=== PATIENT | female | born 1970 | race Caucasian/White ===

== ENCOUNTER → 2018-02-14 | Outpatient (CLI) | payer OTHER ==
[~2018-02-14] VITALS: Ht 165.1 cm; Wt 77.2 kg
[~2018-02-14] MED LIST: AMERGE2.5 MG PO; AMITIZA24 MICROGR PO; ASCORBIC ACID500 M3 PO; COZAAR50 MG PO; Claritin-D 24 Hour PO; Colace PO; DEPAKOTE500 MG PO; DITROPAN XL10 MG PO; Depakote PO; FISH OIL PO; Feosol PO; Flonase BOTH NARES; Medrol PO; Motrin PO; NEXIUM20 MG PO; PHRENILIN FORT1 EAC1 PO; VITAMIN E400 UNIT PO; Vitamin D PO; ZONISAMIDE50 MG PO; Zonegran PO; oxyCODONE PO
== END | disposition home or self-care (01) ==
LOC: AMB 10:26
PROC: 0DB98ZX Excision of Duodenum, Via Natural or Artificial Opening Endoscopic, Diagnostic (ICD-10-PCS; principal; 2018-02-14)
PROC: 0DB68ZX Excision of Stomach, Via Natural or Artificial Opening Endoscopic, Diagnostic (ICD-10-PCS; principal; 2018-02-14)
DX: K29.70 Gastritis, unspecified, without bleeding (principal); I10 Essential (primary) hypertension; K21.9 Gastro-esophageal reflux disease without esophagitis; Z88.2 Allergy status to sulfonamides
CPT/HCPCS: 88305; 88342 TC

== ENCOUNTER 2018-02-22 15:28 | Emergency (ER) | payer OTHER ==
[~2018-02-22] VITALS: Ht 167.6 cm; Wt 76.6 kg
[2018-02-22 15:50] LABS: HEMATOCRIT 43.9 % (36.0-46.0); HEMOGLOBIN 14.6 G/DL (11.9-15.5); MCHC 33.3 G/DL (30.0-36.0); MCV 93.2 FL (83-99); PLATELET COUNT 331 K/uL (156-360); RBC DIS.WIDTH-CV 13.6 % (11.8-14.6); RBC DIS.WIDTH-SD 46.4 % (39-53); RED BLOOD COUNT 4.71 M/uL (3.80-5.20); WHITE BLOOD COUNT 9.9 K/uL (4.1-10.2)
[2018-02-22 15:59] LABS: ALBUMIN 4.1 g/dL (3.2-4.8)
[2018-02-22 16:00] LABS: CHLORIDE 102 mEq/L (99-109); POTASSIUM 3.9 mEq/L (3.7-5.4); SODIUM 137 mEq/L (136-147)
[2018-02-22 16:02] LABS: GLUCOSE 120 mg/dL (70-99); TOTAL PROTEIN 7.7 g/dL (6.4-8.3)
[2018-02-22 16:04] LABS: TOTAL BILIRUBIN 0.3 mg/dL (0.0-1.0)
[2018-02-22 16:05] LABS: ALKALINE PHOSPHATASE 62 IU/L (3-129)
[2018-02-22 16:06] LABS: GFR ESTIMATE (CALCULATED) > 59 mL/min/
[2018-02-22 16:07] LABS: AST (GOT) 21 IU/L (2-34); UREA NITROGEN (BUN) 14 mg/dL (9-23)
[2018-02-22 16:08] LABS: ALT (GPT) 10 IU/L (3-49)
[2018-02-22 16:10] LABS: APPEARANCE CLEAR ((CLEAR)); BILIRUBIN NEGATIVE; BLOOD NEGATIVE; COLOR YELLOW ((YELLOW)); GLUCOSE (STRIP) NEGATIVE; KETONES 5; LEUKOCYTES NEGATIVE; NITRITE NEGATIVE; PROTEIN (STRIP) NEGATIVE; SPECIFIC GRAVITY 1.014 (1.000-1.030); UCUL ADDED? NO
[2018-02-22 16:14] LABS: QUANTITATIVE HCG < 4.0 MIU/ML
[2018-02-22] MEDS ORDERED: COLACE100 MG PO (19:13)
[2018-02-22] MEDS ORDERED: ULTRACET1 TABLET PO (19:13)
[2018-02-22 19:28] VITALS: BP 172/96
== END 2018-02-22 19:29 | disposition home or self-care (01) ==
LOC: EME 15:28
DX: R10.31 Right lower quadrant pain (principal); N83.201 Unspecified ovarian cyst, right side; Z98.890 Other specified postprocedural states; Z90.710 Acquired absence of both cervix and uterus; F32.9 Major depressive disorder, single episode, unspecified; K21.9 Gastro-esophageal reflux disease without esophagitis; Z86.69 Personal history of other diseases of the nervous system and sense organs; Z90.49 Acquired absence of other specified parts of digestive tract
CPT/HCPCS: 74177; 80053; 81003; 84702; 85027; 99281; 99284; J1885; J2405; J3010; J7030

== ENCOUNTER 2018-04-17 19:28 | Inpatient (IN) | payer OTHER ==
[~2018-04-17] VITALS: Ht 167.6 cm; Wt 77.1 kg
[~2018-04-17 19:28] MED LIST changes: +COLACE100 MG PO; +ULTRACET1 TABLET PO
[2018-04-18 09:52] VITALS: BP 134/85
[2018-04-18 16:00] VITALS: BP 110/67
[2018-04-18 20:02] VITALS: BP 126/76
[2018-04-18 20:43] LABS: HEMATOCRIT 37.9 % (36.0-46.0); HEMOGLOBIN 12.1 G/DL (11.9-15.5); MCH 30.3 PG (29.0-34.0); MCHC 31.9 G/DL (30.0-36.0); PLATELET COUNT 303 K/uL (156-360); RBC DIS.WIDTH-CV 13.8 % (11.8-14.6); RBC DIS.WIDTH-SD 47.9 % (39-53); RED BLOOD COUNT 3.99 M/uL (3.80-5.20); WHITE BLOOD COUNT 16.6 K/uL (4.1-10.2)
[2018-04-18 21:06] LABS: CHLORIDE 102 MEQ/L (99-109); GFR ESTIMATE (CALCULATED) > 59 mL/min/; POTASSIUM 4.1 MEQ/L (3.7-5.4); SODIUM 135 MEQ/L (136-147); UREA NITROGEN (BUN) 13 mg/dL (9-23)
[2018-04-18 21:24] LABS: GLUCOSE 239 mg/dL (70-99)
[2018-04-19 00:38] VITALS: BP 135/68
[2018-04-19 03:41] VITALS: BP 138/86
[2018-04-19 07:17] LABS: HEMATOCRIT 40.4 % (36.0-46.0); MCH 30.4 PG (29.0-34.0); MCHC 32.2 G/DL (30.0-36.0); MCV 94.6 FL (83-99); PLATELET COUNT 328 K/uL (156-360); RBC DIS.WIDTH-CV 14.2 % (11.8-14.6); RBC DIS.WIDTH-SD 49.2 % (39-53); RED BLOOD COUNT 4.27 M/uL (3.80-5.20); WHITE BLOOD COUNT 15.2 K/uL (4.1-10.2)
[2018-04-19 07:39] VITALS: BP 182/99
[2018-04-19 07:42] LABS: CHLORIDE 101 MEQ/L (99-109); CREATININE 1.2 MG/DL (0.6-1.3); GFR ESTIMATE (CALCULATED) 51 mL/min/; GLUCOSE 146 mg/dL (70-99); POTASSIUM 3.9 MEQ/L (3.7-5.4); SODIUM 135 MEQ/L (136-147); UREA NITROGEN (BUN) 13 mg/dL (9-23)
[2018-04-19 11:56] VITALS: BP 182/100
[2018-04-19 15:13] VITALS: BP 179/86
[2018-04-20] VITALS (10 sets, daily range): BP systolic 114–139; BP diastolic 72–81
[2018-04-20 07:15] LABS: HEMATOCRIT 29.9 % (36.0-46.0); MCH 30.4 PG (29.0-34.0); MCHC 31.8 G/DL (30.0-36.0); MCV 95.5 FL (83-99); PLATELET COUNT 291 K/uL (156-360); RBC DIS.WIDTH-CV 14.7 % (11.8-14.6); WHITE BLOOD COUNT 20.3 K/uL (4.1-10.2)
[2018-04-20 07:16] LABS: HEMOGLOBIN 9.5 G/DL (11.9-15.5); RED BLOOD COUNT 3.13 M/uL (3.80-5.20)
[2018-04-20 07:39] LABS: CHLORIDE 103 MEQ/L (99-109); GFR ESTIMATE (CALCULATED) 27 mL/min/; GLUCOSE 122 mg/dL (70-99); POTASSIUM 3.9 MEQ/L (3.7-5.4); SODIUM 137 MEQ/L (136-147)
[2018-04-20 07:45] LABS: CREATININE 2.1 MG/DL (0.6-1.3); UREA NITROGEN (BUN) 22 mg/dL (9-23)
[2018-04-20 11:23] LABS: APPEARANCE SL.HAZY ((CLEAR)); BILIRUBIN NEGATIVE; BLOOD LARGE; COLOR YELLOW ((YELLOW)); GLUCOSE (STRIP) NEGATIVE; KETONES NEGATIVE; LEUKOCYTES SMALL; NITRITE NEGATIVE; PROTEIN (STRIP) 30; SPECIFIC GRAVITY 1.018 (1.000-1.030); UROBILINOGEN 0.2 MG/DL (0.2-1.0)
[2018-04-20 11:49] LABS: RED BLOOD CELLS TNTC /HPF (0-5)
[2018-04-20 11:50] LABS: BACTERIA RARE /HPF; EPITHELIAL CELLS RARE /HPF; MUCUS NONE SEEN /LPF
[2018-04-20 12:00] LABS: EOSINOPHILS,URINE SMALL AMOUNT
[2018-04-20 12:25] LABS: UR CREATININE CONCENTRATION 163.9 MG/DL
[2018-04-20 16:09] LABS: CKMB RELATIVE INDEX 0.5 (0.0-3.9); CREATINE KINASE 373 IU/L (1-294); TOTAL CK 373 IU/L (1-294)
[2018-04-20 16:10] LABS: HEMATOCRIT 26.4 % (36.0-46.0); HEMOGLOBIN 8.5 G/DL (11.9-15.5); MCHC 32.2 G/DL (30.0-36.0); MCV 96.4 FL (83-99); PLATELET COUNT 259 K/uL (156-360); RBC DIS.WIDTH-CV 14.8 % (11.8-14.6); RBC DIS.WIDTH-SD 51.6 % (39-53); RED BLOOD COUNT 2.74 M/uL (3.80-5.20); WHITE BLOOD COUNT 18.6 K/uL (4.1-10.2)
[2018-04-20 16:33] LABS: CHLORIDE 104 MEQ/L (99-109); GFR ESTIMATE (CALCULATED) 29 mL/min/; GLUCOSE 116 mg/dL (70-99); POTASSIUM 3.6 MEQ/L (3.7-5.4); SODIUM 137 MEQ/L (136-147); UREA NITROGEN (BUN) 23 mg/dL (9-23)
[2018-04-21] VITALS (8 sets, daily range): BP systolic 127–168; BP diastolic 73–96
[2018-04-21 07:13] LABS: BASOPHIL (%) 0.4 % (0-1); BASOPHIL COUNT 0.1 K/uL (0-0.1); EOSINOPHIL (%) 0.6 % (0-5); EOSINOPHIL COUNT 0.1 K/uL (0-0.3); HEMATOCRIT 29.4 % (36.0-46.0); HEMOGLOBIN 9.8 G/DL (11.9-15.5); IMMATURE GRANULOCYTE (%) 0.8 % (0.0-0.7); LYMPHOCYTE (%) 13.4 % (15-42); LYMPHOCYTE COUNT 1.8 K/uL (1.0-2.8); MCHC 33.3 G/DL (30.0-36.0); MONOCYTE (%) 15.3 % (3-12); NEUTROPHIL (%) 69.5 % (45-76); NEUTROPHIL COUNT 9.2 K/uL (1.8-6.4); PLATELET COUNT 203 K/uL (156-360); RBC DIS.WIDTH-CV 16.3 % (11.8-14.6); RED BLOOD COUNT 3.27 M/uL (3.80-5.20); WHITE BLOOD COUNT 13.2 K/uL (4.1-10.2)
[2018-04-21 07:26] LABS: MCV 89.9 FL (83-99)
[2018-04-21 08:23] LABS: ALBUMIN 2.8 G/DL (3.2-4.8); ALKALINE PHOSPHATASE 47 IU/L (3-129); ALT (GPT) 5 IU/L (3-49); AST (GOT) 15 IU/L (2-34); CHLORIDE 107 MEQ/L (99-109); CHLORIDE 108 MEQ/L (99-109); CREATININE 1.5 MG/DL (0.6-1.3); GFR ESTIMATE (CALCULATED) 40 mL/min/; GLUCOSE 77 mg/dL (70-99); GLUCOSE 78 mg/dL (70-99); MAGNESIUM 1.6 mg/dl (1.3-2.7); PHOSPHORUS 3.2 mg/dL (2.5-4.9); SODIUM 141 MEQ/L (136-147); TOTAL BILIRUBIN 0.3 MG/DL (0.0-1.0); TOTAL PROTEIN 4.9 G/DL (6.4-8.3); UREA NITROGEN (BUN) 18 mg/dL (9-23); UREA NITROGEN (BUN) 19 mg/dL (9-23)
[2018-04-22 06:34] LABS: HEMATOCRIT 28.6 % (36.0-46.0); HEMOGLOBIN 9.4 G/DL (11.9-15.5); MCH 29.8 PG (29.0-34.0); MCHC 32.9 G/DL (30.0-36.0); MCV 90.8 FL (83-99); PLATELET COUNT 209 K/uL (156-360); RBC DIS.WIDTH-CV 16.7 % (11.8-14.6); RBC DIS.WIDTH-SD 55.6 % (39-53); RED BLOOD COUNT 3.15 M/uL (3.80-5.20); WHITE BLOOD COUNT 12.1 K/uL (4.1-10.2)
[2018-04-22 07:19] LABS: CHLORIDE 107 MEQ/L (99-109); GFR ESTIMATE (CALCULATED) > 59 mL/min/; GLUCOSE 84 mg/dL (70-99); POTASSIUM 3.7 MEQ/L (3.7-5.4); SODIUM 140 MEQ/L (136-147); UREA NITROGEN (BUN) 14 mg/dL (9-23)
[2018-04-22 07:20] VITALS: BP 147/71
[2018-04-22] MEDS ORDERED: FLAGYL500 MG PO (10:54)
[2018-04-22] MEDS ORDERED: LEVAQUIN750 MG PO (10:54)
== END 2018-04-22 13:00 | disposition home or self-care (01) | DRG 742 ==
LOC: ENRESERV 19:28 → 2SOUTH 04-18 09:11 → 2EAST 04-18 09:11 → 2SOUTH 04-18 09:41 → ENRESERV 04-18 14:26 → 2SOUTH 04-18 14:53 → 2EAST 04-18 16:03
PROVIDERS: Internal Medicine Nephrology; Obstetrics & Gynecology Gynecologic Oncology
DX: N83.11 Corpus luteum cyst of right ovary (principal); N17.0 Acute kidney failure with tubular necrosis; T39.395A Adverse effect of other nonsteroidal anti-inflammatory drugs [NSAID], initial encounter; N13.5 Crossing vessel and stricture of ureter without hydronephrosis; N73.6 Female pelvic peritoneal adhesions (postinfective); I10 Essential (primary) hypertension; G40.909 Epilepsy, unspecified, not intractable, without status epilepticus; R32 Unspecified urinary incontinence; K21.9 Gastro-esophageal reflux disease without esophagitis; Z90.710 Acquired absence of both cervix and uterus
CPT/HCPCS: 36415; 74019; 76770; 80048; 80048 91; 80053; 80164; 81003; 82550; 82553; 82570; 83735; 84100; 84156; 85025; 85027; 86850; 86900; 86901; 86920; 88305; 89190; 93005; C1758; J0131; J0690; J1100; J1170; J1650; J1885; J1956; J2250; J2405; J2550; J2710; J2765; J3010; J7030; J7643; P9016; Q0175; S0030